=== PATIENT | male | born 1980 | race Caucasian/White ===

== ENCOUNTER 2021-04-12 22:01 | Inpatient (IN) | payer OTHER ==
[~2021-04-12] VITALS: Ht 172.7 cm; Wt 77.1 kg
--- NOTE | ~2021-04-12 | OP ---
[facility] [address] [place] [address] OPERATIVE REPORT Name: SERGEY ARTEAGA Room: [address] M.R.#: [id number] Admission: 04/13/21 Attend Phys: Elliot Daniels MD Discharge: Date of : 84 Report #: [id number] THIS REPORT FOR: cc: EDGAR - No family physician/PCP FAM - No family physician/PCP Rao Rich MD ~ DOC #: [id number] Rao Rich MD DATE OF SURGERY: 04/14/2021 PREOPERATIVE DIAGNOSIS: Acute cholecystitis. POSTOPERATIVE DIAGNOSIS: Acute cholecystitis. OPERATION: Laparoscopic cholecystectomy. SURGEON: Rao Rich MD ANESTHESIA: General. ESTIMATED BLOOD LOSS: Minimal. SPECIMENS: Gallbladder. DESCRIPTION OF PROCEDURE: After informed consent was obtained, the patient was brought to the operating room and placed supine. SCDs were placed and working, preoperative antibiotics were administered, general anesthesia was induced. The abdomen was prepped and draped in usual sterile fashion. A 10 mm incision was made below the umbilicus. Fascia was incised and a trocar was placed. Pneumoperitoneum was established. Three right upper quadrant 5 mm ports were placed. Gallbladder was grasped at the fundus and retracted cephalad. Infundibulum was grasped and retracted laterally. I dissected out the cystic duct and cystic artery. Cystic duct and artery were clipped and ligated. After the cystic plate was fully identified. The gallbladder was then taken off the liver bed with electrocautery. It was placed into an Endopouch and removed. The fascia was then closed with a [id number] 0 Vicryl. Skin was closed with 4-0 Monocryl. Incisions were sealed with Steri-Strips. COMPLICATIONS: None. DISPOSITION: The patient was taken to recovery in satisfactory condition. MD DON Man/[place] [address] OPERATIVE REPORT Name: SERGEY ARTEAGA Room: [address]#: [id number] Admission: 04/13/21 Attend Phys: Elliot Daniels MD Discharge: Date of : 84 Report #: [id number] By: [id number] Rich MD /nt
[2021-04-12 22:14] VITALS: BP 145/53
[2021-04-12 23:29] LABS: ABSOLUTE BASOPHILS 0.1 thou/uL (0.0-0.2); ABSOLUTE EOSINOPHILS 0.1 thou/uL (0.0-0.7); ABSOLUTE LYMPHOCYTES 2.8 thou/uL (0.8-5.3); ABSOLUTE MONOCYTES 0.8 thou/uL (0.0-1.2); ABSOLUTE NEUTROPHILS 7.3 thou/uL (1.6-8.1); BASOPHILS 0.5 %; EOSINOPHILS 1.3 %; HEMATOCRIT 44.6 % (42.0-52.0); HEMOGLOBIN 15.1 gm/dL (14.0-18.0); LYMPHOCYTES 25.3 %; MCH 29.6 pg (26.0-34.0); MCHC 33.9 g/dL (28.0-37.0); MCV 87.3 fL (80.0-100.0); MONOCYTES 7.5 %; MPV 8.9 fl. (7.2-11.1); NUCLEATED RBCS 0 /100WBC; PLATELET COUNT* 251 thou/uL (150-400); POLYS 65.4 %; RBC 5.11 mil/uL (4.50-6.00); RDW-CV 13.8 % (10.5-14.5); WBC 11.1 thou/uL (4.0-11.0)
[2021-04-12 23:43] LABS: CALCIUM 8.7 mg/dL (8.5-10.1)
[2021-04-12 23:47] LABS: MAGNESIUM 2.4 mg/dL (1.8-2.4); TOTAL BILIRUBIN 0.3 mg/dL (<0.1-1.0); TOTAL PROTEIN 8.5 g/dL (6.4-8.2)
[2021-04-13 07:30] VITALS: BP 110/62
[2021-04-13 11:30] VITALS: BP 110/67
--- NOTE | 2021-04-13 11:41 | EKG ---
[place] [address] ELECTROCARDIOGRAM REPORT Name: SERGEY ARTEAGA Room: [address] M.R.#: [id number] Admission: 04/13/21 Attend Phys: Elliot Daniels, Discharge: Date of : 84 Date of Service: 04/12/21 2326 Report #: [id number] THIS REPORT FOR: //name// [facility] ED Test Date: 2021-04-12 Test Time: 23:26:26 Pat Name: SERGEY WALL Department: Room: [place] [address] Gender: M Road Roller Operator: HUNTER : 1980 Requested By: Evy Nathan Order Number: [id number] Sintia MD: Enio Funes Measurements Intervals [place] Rate: 64 P: 35 MS: 174 QRS: 54 QRSD: 87 T: 50 QT: 386 QTc: 399 Interpretive Statements Sinus rhythm ST elev, probable normal early repol pattern No previous ECG available for comparison Electronically Signed On 04-13-2021 11:40:59 CDT by Enio Funes [email or web address] <ELECTRONICALLY SIGNED> By: Enio Funes MD, [facility] 04/13/21 1140 2326 2326 Enio Funes MD, [facility] /EPI
[2021-04-13 15:00] VITALS: BP 111/72
--- NOTE | 2021-04-13 15:00 | NUR ---
REPORT RECIEVED FROM SHANE HARRY AT BEDSIDE. PT SETTLED IN BED. PT NPO AT THIS TIME. CALL LIGHT WITHIN REACH. WILL CONTINUE TO MONITOR.
[2021-04-13 15:45] VITALS: BP 120/77
--- NOTE | 2021-04-13 16:10 | NUR ---
CONSULT CALLED TO DR. ALEXIS. INFORMED OF NEW PATIENT CONSULT. STATES TO MAKE PT NPO AFTER MIDNIGHT. WILL SEE TOMORROW.
--- NOTE | 2021-04-13 18:45 | NUR ---
PT ALERT AND ORIENTED X 4. IVF REMAIN INFUSING AT THIS TIME. PT UP AD DESMOND. PT CONTINUES TO DENY PAIN AND NAUSEA THIS SHIFT. SURGICAL CONSULT CALLED TO DR. ALEXIS. PT TO BE NPO AFTER MIDNIGHT. WILL CONTINUE TO MONITOR.
[2021-04-13 19:40] VITALS: BP 109/77
--- NOTE | 2021-04-14 04:40 | NUR ---
PT A&O X 4. VSS ON RA. NO C/O PAIN, N/V. UP INDEPENDENTLY IN ROOM. IVF INFUISING. NPO SINCE MIDNIGHT FOR SURGERY CONSULT. CALL LIGHT WITHIN REACH. WILL CONTINUE TO MONITOR.
[2021-04-14 07:22] LABS: ALBUMIN 3.1 g/dL (3.4-5.0); CALCIUM 8.3 mg/dL (8.5-10.1); CREATININE 1.1 mg/dL (0.6-1.3); POTASSIUM 4.2 mmol/L (3.5-5.1); TOTAL BILIRUBIN 0.5 mg/dL (<0.1-1.0)
[2021-04-14 07:35] VITALS: BP 116/66
--- NOTE | 2021-04-14 13:59 | NUR ---
PT RETURNED FROM SURGERY. PT ALERT AND ORIENTED. LUNCH BROUGHT TO PATIENT CALL LIGHT WITHIN REACH.
[2021-04-14 15:50] VITALS: BP 120/81
--- NOTE | 2021-04-14 16:27 | NUR ---
PT REMAINED ALERT AND ORIENTED. PT RESTING IN BED. SURGERY THIS SHIFT, INCISION C/D/I. PAIN MEDS GIVEN ORDERED. FALL RISK PRECAUTIONS IN PLACE. HOURLY ROUNDING COMPLETED. CALL LIGHT WITHIN REACH.
[2021-04-14 20:00] VITALS: BP 116/75
[2021-04-15] VITALS: BP 99/64
[2021-04-15 04:00] VITALS: BP 112/72
[2021-04-15 04:35] LABS: HEMATOCRIT 41.6 % (42.0-52.0); HEMOGLOBIN 14.1 gm/dL (14.0-18.0); MCH 29.5 pg (26.0-34.0); MCV 86.5 fL (80.0-100.0); MPV 9.2 fl. (7.2-11.1); PROTIME 10.3 Seconds (9.20-11.50); RBC 4.8 mil/uL (4.50-6.00); RDW-CV 13.6 % (10.5-14.5); WBC 12.4 thou/uL (4.0-11.0)
[2021-04-15 04:37] LABS: CALCIUM 8.4 mg/dL (8.5-10.1); CREATININE 1.1 mg/dL (0.6-1.3); MAGNESIUM 2.3 mg/dL (1.8-2.4); POTASSIUM 4.2 mmol/L (3.5-5.1)
--- NOTE | 2021-04-15 05:39 | NUR ---
PATIENT HAS REMAINED ALERT AND ORIENTED X 4 THROUGHOUT THE SHIFT AND RESTING QUIETLY ON HOURLY ROUNDS. UP INDEPENDENTLY TO BR. POST-OP VOIDS WITHOUT DIFFICULTY. LAP SITES WITH STERI-STRIPS. GAUZE ALSO OVER UMBILICUS SITE. VITAL SIGNS STABLE. ANTIBIOTICS PER ORDER. MINAMAL DISCOMFORT AND HAS NOT REQUIRED PAIN MEDICATIONS THIS SHIFT. CONTINUE TO MONITOR.
[2021-04-15 07:25] VITALS: BP 104/65
[2021-04-15 07:59] VITALS: BP 104/65
--- NOTE | 2021-04-15 08:53 | NUR ---
PT GIVEN DISCHARGE INFORMATION, WORK EXCUSE, PRESCRIPTIONS, CARE NOTES, AND AFTER CARE INFORMATION. IV REMOVED. PT BELONGINGS GATHERED. FALL RISK PRECAUTIONS IN PLACE. HOURLY ROUNDING COMPLETED. PT LEFT VIA WHEELCHAIR WITH NURSING STAFF TO HOME.
--- NOTE | 2021-04-17 17:07 | PATH ---
[address] [address] PATHOLOGY RPT PROCEDURE Name: CHEATHAM SERGEY WALL Room: [address] IN [facility].#: [id number] Admission: 04/13/21 Date of : 84 Discharge: 04/15/21 Report #: [id number] Path Case #: [id number] [facility] Accession Number: [id number] . 01 Material submitted: . gallbladder - GALLBLADDER . 01 Clinical history: . LAPAROSCOPIC CHOLECYSTECTOMY ABDOMINAL PAIN BILIARY COLIC . 02 Diagnosis: Gallbladder: - Chronic cholecystitis and cholelithiasis. ([facility]/db; 04/17/2021) LBQ 04/17/2021 1524 Local . 02 Electronically signed: . David Hammonds MD, Pathologist NPI- [id number] . 01 Gross description: . Fixative: Formalin Labeled: Gallbladder Specimen received: Intact gallbladder Dimensions: 10.0 x 3.5 x 3.0 cm Serosa: Jellico-heck and congested at the fundus Lymph node: Not present Mucosa: Velvety to smooth, green bile-stained Average wall thickness: 0.2-0.4 cm Calculi: Multiple qureshi calculi ranging from 0.1-0.7 cm Abnormalities: No grossly apparent lesions A1- Information Systems Technician body, fundus, and the cystic duct margin. ([facility]; 04/16/2021) . . . [facility] 04/16/2021 2234 Local . 02 Pathologist provided ICD-10: K80.10 . 02 CPT . 968751 Specimen Comment: A courtesy copy of this report has been sent to [phone] Specimen Comment: [address] [place] [address] PATHOLOGY RPT PROCEDURE Name: CHEATHAM SERGEY WALL Room: [address]#: [id number] Admission: 04/13/21 Date of : 84 Discharge: 04/15/21 Report #: [id number] Path Case #: [id number] Specimen Comment: Report sent to / DR HARRIS Performed at: [facility] [place] [address], [place], [place] [id number] MD Cameron Morrison MD Phone: [phone] Performed at: 02 [facility] [address], [place], [place] [id number] MD David Hammonds MD Phone: [phone]
== END 2021-04-15 09:25 | disposition home or self-care (01) | DRG 419 ==
LOC: M.ERS 22:01 → M.TBA-ER 04-13 03:27 → M.ORTHSURG 04-13 15:32
PROVIDERS: Emergency Medicine; Internal Medicine; ADMIT Internal Medicine; ATTEND Internal Medicine
PROC: 0FT44ZZ Resection of Gallbladder, Percutaneous Endoscopic Approach (ICD-10-PCS; principal; 2021-04-14)
DX: K80.62 Calculus of gallbladder and bile duct with acute cholecystitis without obstruction (principal); Z20.822 Contact with and (suspected) exposure to COVID-19